=== PATIENT | female | born 1960 | race Caucasian/White ===

== ENCOUNTER 2017-05-16 10:51 | Inpatient (IN) | payer BC ==
[2017-05-08 12:37] LABS: APPEARANCE,URINE CLEAR; BILIRUBIN, URINE NEGATIVE (NEGATIVE); COLOR,URINE PALE YELLOW; GLUCOSE, URINE (UA) NEGATIVE (NEGATIVE); KETONES,URINE NEGATIVE (NEGATIVE); LEUKOCYTE ESTERASE ,URINE 2+ (NEGATIVE); NITRITE,URINE NEGATIVE (NEGATIVE); PH,URINE 7 (4.5-8.0); PROTEIN,URINE NEGATIVE (NEGATIVE); UROBILINOGEN,URINE NORMAL MG/DL (0.0-1.0)
[2017-05-08 12:38] LABS: BASOPHILS % (AUTO) 0.9 % (0.0-2.0); EOSINOPHILS % (AUTO) 0.8 % (0.0-3.0); HEMATOCRIT 41.3 % (37.0-47.0); HEMOGLOBIN 13.7 G/DL (12.0-16.0); LYMPHOCYTES % (AUTO) 23.4 % (20.0-45.0); MEAN CORPUSCULAR VOLUME 97 FL (80-99); MONOCYTES % (AUTO) 6.2 % (1.0-10.0); NEUTROPHILS % (AUTO) 68.7 % (45.0-75.0); PLATELET COUNT 298 K/UL (150-450); RED BLOOD COUNT 4.25 M/UL (4.20-5.40); RED CELL DISTRIBUTION WIDTH 11.7 % (11.6-14.8); WHITE BLOOD COUNT 5.6 K/UL (4.8-10.8)
[2017-05-08 12:57] LABS: ANION GAP 7 mmol/L (5-15); BLOOD UREA NITROGEN 10 mg/dL (7-18); CALCIUM 9.5 MG/DL (8.5-10.1); CARBON DIOXIDE 30 MMOL/L (21-32); CHLORIDE 103 MMOL/L (98-107); CREATININE 0.8 MG/DL (0.55-1.30); POTASSIUM 4.4 MMOL/L (3.5-5.1); SODIUM 140 MMOL/L (136-145)
[2017-05-08 13:02] LABS: INR 0.9 (0.9-1.1)
--- NOTE | 2017-05-08 13:22 | Diagnostic Imaging Report ---
Indication: Cough Technique: XRAY Chest 2v Comparison: None Findings: Heart size and mediastinal contours are within normal limits. There is no focal airspace consolidation, pleural effusion or pneumothorax. There are minimal degenerative changes of the spine. No acute osseous abnormality seen. Impression: No radiographic evidence of acute cardiopulmonary disease.
--- NOTE | 2017-05-15 15:00 | Pre-op HX & Phy Repo 2 SIG ---
DATE OF ADMISSION: 05/16/2017 DATE OF SURGERY: 05/16/2017 HISTORY OF PRESENT ILLNESS: The patient is a 56-year-old female, in overall good health, who recently presented with a palpable nodule in the right outer breast. Core biopsy revealed invasive ductal carcinoma and a core biopsy of an axillary lymph node was negative for metastatic disease. The patient did have hematoma at both biopsy sites, which resolved. The patient was tested for the HER-2/kailyn marker, which was negative. The patient has recently been taking oral contraceptives for the past five months because she has a problem with her intrauterine device and is still having menstrual periods. Since the diagnosis of breast cancer was made, she has stopped the oral contraceptives. PAST MEDICAL HISTORY: MEDICATIONS: None. ALLERGIES: None. OPERATIONS: None. REVIEW OF SYSTEMS: 2, para 1, AB 1. PHYSICAL EXAMINATION: GENERAL: The patient is well developed and well nourished. HEENT: Within normal limits. LUNGS: Clear. HEART: Regular rhythm. BREASTS: Examination of the breasts reveals no abnormality of the left breast. Examination of the right breast reveals a 2 cm nodule at 9 o'clock several centimeters from the areolar border. There is no palpable axillary or supraclavicular lymphadenopathy. ABDOMEN: Soft. PELVIC: By her level vial sealer. RECTAL: By her level vial sealer. EXTREMITIES: Without edema. NEUROLOGIC: Physiologic. IMPRESSION: Invasive ductal carcinoma, right breast with palpable breast mass. PLAN: Right breast partial mastectomy with right axillary lymph node biopsy. DISCUSSION: Full discussion has been had with the patient regarding the nature of her condition, the nature of the surgery, indications, alternatives, options, and risks including bleeding, infection, distortion of the shape or contour of the breast postoperatively, need for radiation therapy to the breast after surgery, and potential need for chemotherapy based on the final pathology report and the final status of axillary lymph glands. The carcinoma is moderately differentiated on the core biopsy. All questions have been answered. The patient understands and agrees to proceed. Spenser Heath M.D. DR: SHANE JOB#: [id number] CC:
[~2017-05-16] VITALS: Ht 170.2 cm; Wt 64.0 kg
[2017-05-16] VITALS (11 sets, daily range): BP systolic 142–165; BP diastolic 80–97
[2017-05-16] MEDS ORDERED: NKM (11:51)
--- NOTE | 2017-05-16 11:52 | Pre-Procedure Note/Attestation ---
Pre-Procedure Note/Attestation Complete Prior to Procedure Planned Procedure: right Procedure Narrative: right breast partial mastectomy and right axillary lymph node biopsy Indications for Procedure Pre-Operative Diagnosis: invasive ductal carcinoma right breast Attestation I attest that I discussed the nature of the procedure; its benefits; risks and complications; and alternatives (and the risks and benefits of such alternatives ), prior to the procedure, with the patient (or the patient's legal associate financial representative). I attest that, if there was a reasonable possibility of needing a blood transfusion, the patient (or the patient's legal associate financial representative) was given the [facility] standardized written summary, pursuant to the [place] Blood Safety Act ([place] Health and Safety Code # 1645, as amended). I attest that I re-evaluated the patient just prior to the surgery and that there has been no change in the patient's H&P, except as documented below: none FRACISCO GU May 16, 2017 11:52
--- NOTE | 2017-05-16 12:05 | Anethesia Preoperative Eval ---
Anesthesia Pre-op PMH/ROS General Date of Evaluation: May 16, 2017 Anesthesiologist: Carson ASA Score: ASA 3 Mallampati Score Class I : Soft palate, uvula, fauces, pillars visible Class II: Soft palate, uvula, fauces visible Class III: Soft palate, base of uvula visible Class IV: Only hard plate visible Mallampati Classification: Class II Surgeon: Ivana Diagnosis: Right breast cancer Surgical Procedure: Right breast partial mastectomy and SLN biopsy Anesthesia History: none Family History: no anesthesia problems Allergies: Coded Allergies: No Known Allergies (Unverified , 11/26/14) Medications: see eMAR Past Medical History Cardiovascular: Denies: HTN, CAD, [place], valve dz, arrhythmia, other Pulmonary: Denies: asthma, COPD, SOTO, other Gastrointestinal/Genitourinary: Reports: other - colitis, Denies: GERD, CRI, ESRD Neurologic/Psychiatric: Denies: dementia, CVA, depression/anxiety, TIA, other Endocrine: Denies: DM, hypothyroidism, steroids, other HEENT: Denies: cataract (L), cataract (R), glaucoma, [place] (L), [place] (R), other Hematology/Immune: Reports: other - right breast cancer, Denies: anemia, DVT, bleeding disorder Musculoskeletal/Integumentary: Denies: OA, RA, DJD, DDD, edema, other PSxH Narrative: lap appy Anesthesia Pre-op Phys. Exam Physician Exam Last Vital Signs Date Time Temp Pulse Resp B/P (MAP) Pulse Ox O2 Delivery O2 Flow Rate FiO2 05/16/17 11:46 98.5 68 18 142/88 98 Room Air Constitutional: NAD Cardiovascular: RRR Respiratory: CTA Airway Exam Mallampati Score: Class II MO: full ROM: full Teeth: intact Anesthesia Pre-op A/P Labs see chart Urine Test Test 05/16/17 10:00 Urine HCG, Qualitative Pending Studies Pre-op Studies: EKG - sr Risk Assessment & Plan Assessment: ASA III Plan: GA Status Change Before Surgery: No Pre-Antibiotics Drug: Ancef 1g Given Within 1 Hr of Incision: Yes Time Given: 13:00 RAVI COYLE M.D. May 16, 2017 12:05
[2017-05-16] MEDS ORDERED: Lidocaine 1% Plain 30 ml INJ ONE (12:18)
[2017-05-16] MEDS ORDERED: Bupivacaine 0.5% Inj 30 ml vial INJ ONE (12:18)
--- NOTE | 2017-05-16 13:20 | Immediate Post-Op Evaluation ---
Immediate Post-Op Evalulation Immediate Post-Op Evalulation Procedure: Right breast partial mastectomy and Right SLN biopsy Date of Evaluation: May 16, 2017 Time of Evaluation: 15:01 IV Fluids: 900 Blood Products: 0 Estimated Blood Loss: 10 Urinary Output: 0 Blood Pressure Systolic: 168 Blood Pressure Diastolic: 96 Pulse Rate: 77 Respiratory Rate: 16 O2 Sat by Pulse Oximetry: 100 Temperature (Fahrenheit): 97.3 Pain Score (1-10): 0 Nausea: No Vomiting: No Complications 0 Patient Status: awake, reacts, patent, none Hydration Status: adequate Drug: Ancef 1g Given Within 1 Hr of Incision: Yes - 1305 Time Given: 13:05 RAVI COYLE M.D. May 16, 2017 13:20
[2017-05-16] MEDS ORDERED: LR 1000ml 1,000 ML IVLG SCH (13:21)
--- NOTE | 2017-05-16 13:23 | 48 Hour Post Anesthesia Eval ---
Post Anesthesia Evaluation Procedure: Right breast partial mastectomy and Right SLN biopsy Date of Evaluation: May 16, 2017 Airway: patent Nausea: No Vomiting: No Pain Intensity: 0 Hydration Status: adequate Cardiopulmonary Status: at baseline Mental Status/LOC: patient returned to baseline Post-Anesthesia Complications: 0 Follow-up care needed: ready to discharge RAVI COYLE M.D. May 16, 2017 13:23
[2017-05-16] MEDS ORDERED: fentaNYL 100 mcg/2 mL IV PRN (13:30)
[2017-05-16] MEDS ORDERED: Ketorolac 30mg Inj IV PRN (13:30)
[2017-05-16] MEDS ORDERED: DiphenhydrAMINE 50mg/ml Inj IVP PRN (13:30)
[2017-05-16] MEDS ORDERED: Hydromorphone 0.5mg/0.5ml inj IVP PRN (13:30)
[2017-05-16] MEDS ORDERED: fentaNYL 100 mcg/2 mL IV ONE (13:40)
[2017-05-16] MEDS ORDERED: LR 1000ml ONE (13:40)
[2017-05-16] MEDS ORDERED: NS Irrig 1000ml ONE (13:40)
[2017-05-16] MEDS ORDERED: Midazolam 2mg/2ml Inj ONE (13:40)
[2017-05-16] MEDS ORDERED: Zemuron 50mg/5ml Inj IV ONE (13:40)
[2017-05-16] MEDS ORDERED: Metoclopramide 10mg/2ml Inj ONE (13:40)
[2017-05-16] MEDS ORDERED: Lidocaine 1% MPF 10mg/ml 5ml ONE (13:40)
[2017-05-16] MEDS ORDERED: Sterile Water Irrig 1000ml IRRIG ONE (13:40)
[2017-05-16] MEDS ORDERED: Propofol 200mg/20ml IV ONE (13:40)
[2017-05-16] MEDS ORDERED: Norco 5mg/325mg tab ORAL PRN (15:00)
[2017-05-16] MEDS ORDERED: HYDROmorphone 1mg/ml Carpuject SUBQ PRN (15:00)
--- NOTE | 2017-05-16 15:02 | Brief Operative Note ---
Immediate Post Operative Note Operative Note Pre-op Diagnosis: invasive ductal carcinoma right breast Procedure: right breast partial mastectomy and right axillary sentinel lymph node biopsy Post-op Diagnosis: same Post-op Diagnosis: same as pre-op Findings: consistent w/pre-op dx studies Surgeon: dimitry Anesthesiologist: karine Anesthesia: general Specimen: yes - breast cancer, axillary nodes Complications: none Condition: stable Fluids: see anesthesia record Estimated Blood Loss: minimal Drains: DARRYL Implant(s) used?: No FRACISCO GU May 16, 2017 15:02
[2017-05-16] MEDS: D5 1/2NS w/KCl 20mEq 1,000 ML IV SCH (20:55)
[2017-05-17 00:58] VITALS: BP 119/72
[2017-05-17 04:39] VITALS: BP 124/76
[2017-05-17] MEDS: D5 1/2NS w/KCl 20mEq 1,000 ML IV SCH (05:41)
--- NOTE | 2017-05-17 07:56 | 48 Hour Post Anesthesia Eval ---
Post Anesthesia Evaluation Procedure: Right breast partial mastectomy and Right SLN biopsy Date of Evaluation: May 17, 2017 Time of Evaluation: 06:24 Blood Pressure Systolic: 124 0: 76 Pulse Rate: 70 Respiratory Rate: 19 Temperature (Fahrenheit): 98.3 O2 Sat by Pulse Oximetry: 97 Airway: patent Nausea: No Vomiting: No Pain Intensity: 2 Hydration Status: adequate Cardiopulmonary Status: Stable Mental Status/LOC: patient returned to baseline Follow-up Care/Observations: 0 Post-Anesthesia Complications: 0 Follow-up care needed: N/A Ben Ryder MD May 17, 2017 07:56
[2017-05-17 08:00] VITALS: BP 137/74
--- NOTE | 2017-05-17 09:05 | General Progress Note ---
Progress Note Progress Note AVSS Pain in recovery room but overnight comfortable. New steristrips applied to breast incision; axillary incision is clean with intact steris DARRYL 25cc overnight serosang Imp: Stable Plan: discharge instructed re care of DARRYL drain and recording output Rx [place] 5/325 #20 F/U office 05/22 - call prn instructions and limitations discussed FRACISCO GU May 17, 2017 09:05
[2017-05-17] MEDS ORDERED: NORCO 5-325 TA1 EAC1 ORAL (10:41)
--- NOTE | 2017-05-18 02:30 | Operative Note - Dictated ---
DATE OF OPERATION: 05/16/2017 SURGEON: Spenser Heath M.D. AVIATION ORDNANCE OFFICER: None. ANESTHESIOLOGIST: Dr. Byrd. TYPE OF ANESTHESIA: General endotracheal. PREOPERATIVE DIAGNOSIS: Invasive ductal carcinoma, right breast. POSTOPERATIVE DIAGNOSIS: Invasive ductal carcinoma, right breast. OPERATION PERFORMED: Right breast partial mastectomy and right axillary sentinel lymph node biopsy. DESCRIPTION OF PROCEDURE: The patient was taken to the operating room and under general endotracheal anesthesia with sequential compression device stockings in place, she was prepped and draped in the usual fashion draping the right upper extremity into the field. The palpable nodule was in the outer aspect of the right breast at 9 o'clock. The patient had moderate ecchymosis from her prior core needle biopsy, which resulted in hematoma of the breast and hematoma of the axilla with core biopsy of the axillary lymph node, which was negative. A curvilinear incision was made overlying the mass and flaps dissected circumferentially with cautery for hemostasis. Dissection was carried down to the pectoralis fascia and a wide excision performed. The specimen was oriented with multiple sutures indicating anterior, medial and superior. Specimen was given to the pathologist who felt that the anterior margin was somewhat close and additional anterior tissue was removed as well as tissue inferiorly. Hemostasis was carefully achieved with cautery and was secured. The incision was closed with multiple interrupted inverted 2-0 Vicryl subcutaneous deep dermal sutures followed by continuous 4-0 Monocryl subcuticular suture. Attention was then directed to the right axilla where a transverse axillary incision was made achieving hemostasis with cautery and incising the clavipectoral fascia. There were two obvious lymph nodes that were resected with the lower level axillary fat pad using clips and cautery for hemostasis. The tissue was given to the pathologist who identified three lymph nodes. Through a separate stab incision inferiorly, a 19 mm round Hilario drain was placed into the axilla and sutured to the skin with a 2-0 nylon suture. The field was irrigated and hemostasis was secured. The clavipectoral fascia was closed with 2-0 Vicryl. Subcutaneous tissues closed with interrupted 2-0 Vicryl and skin closed with continuous 4-0 Monocryl subcuticular suture. Mastisol and half-inch Steri-Strips were applied to both incisions followed by dry sterile dressings and a surgical brassiere. The patient tolerated the procedure well and left the operating room in good condition. Spenser Heath M.D. DR: LOGAN JOB#: [id number] CC: JUNAID
--- NOTE | 2017-05-18 10:42 | Discharge Summary ---
Discharge Summary Hospital Course Date of Admission May 16, 2017 at 14:54 Date of Discharge May 17, 2017 at 10:42 Admitting Diagnosis RIGHT BREAST MASTECTOMY TATIANNA Reeves is a 56 year old female who was admitted on May 16, 2017 at 14:54 for Carcinoma Right Breast Hospital Course The patient is a 56-year-old female, in overall good health, who recently presented with a palpable nodule in the right outer breast. Core biopsy revealed invasive ductal carcinoma and a core biopsy of an axillary lymph node was negative for metastatic disease. The patient did have hematoma at both biopsy sites, which resolved. The patient was tested for the HER-2/kailyn marker, which was negative. The patient has recently been taking oral contraceptives for the past five months because she has a problem with her intrauterine device and is still having menstrual periods. Since the diagnosis of breast cancer was made, she has stopped the oral contraceptives. She was admitted on 05/16/17 and underwent right breast mastectomy. She tolerated procedure well. Post operatively, AVSS Pain in recovery room but overnight comfortable. New steristrips applied to breast incision; axillary incision is clean with intact steristrips DARRYL 25cc overnight serosanginous Imp: Stable Plan: discharge instructed re care of DARRYL drain and recording output Rx [place] 5/325 #20 F/U office 05/22 - call prn instructions and limitations discussed PREOPERATIVE DIAGNOSIS: Invasive ductal carcinoma, right breast. POSTOPERATIVE DIAGNOSIS: Invasive ductal carcinoma, right breast. OPERATION PERFORMED: Right breast partial mastectomy and right axillary sentinel lymph node biopsy. --I have been asigned to complete a DC summary on this account, I was not involved with the patient's management.--OMAR Junior-- Discharge Discharge Disposition Patient was discharged to home Discharge Diagnoses: Loan Galvez NP May 18, 2017 10:42
--- NOTE | 2017-05-22 14:02 | Cardiology Report ---
APPROVED REPORT EKG Measurement Heart [id number] Normal sinus rhythm Rightward axis Borderline ECG
== END 2017-05-17 10:42 | disposition home or self-care (01) | DRG 581 ==
LOC: SUR 10:51 → 3E 14:54 → EDBEDREQ 17:11
PROC: 0HBT0ZZ Excision of Right Breast, Open Approach (ICD-10-PCS; principal; 2017-05-17)
PROC: 07B50ZX Excision of Right Axillary Lymphatic, Open Approach, Diagnostic (ICD-10-PCS; principal; 2017-05-17)
DX: C50.911 Malignant neoplasm of unspecified site of right female breast (principal); Z79.3 Long term (current) use of hormonal contraceptives; Z17.1 Estrogen receptor negative status [ER-]
CPT/HCPCS: 36415; 71046; 80048; 81001; 81025; 84703; 85025; 85610; 85730; 93005; 94003; 94150; J2250; J2405; J2765